=== PATIENT | male | born 1990 | race Caucasian/White ===

== ENCOUNTER 2020-04-09 12:34 | Emergency (ER) | payer OTHER ==
--- NOTE | 2020-04-09 12:41 | ED Physician Documentation ---
PD HPI LOWER EXT INJURY - Stated complaint Stated Complaint: RT FOOT PX - History obtained from History obtained from: Patient - History of Present Illness PD HPI LOW EXT INJURY LOCATION: Right, Foot, Toe (dorsal/medial aspect of great toe MTP area. Local redness and swelling that has not improved but has not expanded from the area. Very painful.) Type of injury: Other (he does exercise regularly. Also had tight fitting boots on the week prior. No particular impact/injury. No history of fevers, punctures/skin injury, nor prior gout.). No: Fall, Twist Timing - onset: How many weeks ago (1) Timing - duration: Weeks (1) Timing - details: Gradual onset, Still present (increased the past 1-2 days), Waxing and waning Worsened by: Moving, Palpating Associated symptoms: Swelling, Discolored (red). No: Weakness, Numbness Similar symptoms before: Has not had sx before Recently seen: Not recently seen Review of Systems Constitutional: denies: Fever, Chills, Myalgias Nose: denies: Rhinorrhea / runny nose, Congestion Throat: denies: Sore throat Respiratory: denies: Cough GI: denies: Nausea, Vomiting, Diarrhea Skin: denies: Lesions, Abrasion (s), Laceration (s) Neurologic: denies: Focal weakness, Numbness PD PAST MEDICAL HISTORY - Past Medical History Cardiovascular: None Respiratory: None Endocrine/Autoimmune: None GI: None : None HEENT: None Psych: None Musculoskeletal: None, Other (no history of gout) Derm: Other - Present Medications Home Medications: Ambulatory Orders Medication Instructions Recorded Confirmed Aspirin [Adult Low Dose Aspirin EC] 1 tab PO DAILY 01/20/18 04/09/20 Hydrocodone/Acetaminophen [[place] 1 each PO Q6H PRN #15 tablet 04/09/20 5-325 Tablet] Indomethacin 25 mg PO TID #20 capsule 04/09/20 dexAMETHasone [Decadron] 4 mg PO DAILY #5 tablet 04/09/20 - Allergies Allergies/Adverse Reactions: Allergies Allergy/AdvReac Type Severity Reaction Status Date / Time No Known Drug Allergies Allergy Verified 04/09/20 12:38 - Social History Does the pt smoke?: No Does the pt drink ETOH?: Yes ETOH Use: Other (very infrequently, every 1-2 weeks. ) Does the pt have substance abuse?: No PD ED PE NORMAL - Vitals Vital signs reviewed: Yes - General General: Alert and oriented X 3, No acute distress, Well developed/nourished - Derm Derm: Normal color, Warm and dry - Extremities Extremities: Other (right great toe MTP dorsomedially with redness, swelling, small effusion and marked tenderness very localized. No spread/extension to the more proximal foot nor tip of toe. ) - Neuro Neuro: Alert and oriented X 3, No motor deficit, No sensory deficit, Normal speech Results - Vitals Vitals: Vital Signs - 24 hr 04/09/20 12:39 Temperature 36.6 C Heart Rate 86 Respiratory 18 Rate Blood Pressure 134/88 H O2 Saturation 97 Oxygen O2 Source Room air PD MEDICAL DECISION MAKING - ED course Complexity details: considered differential (no skin lesions to act as nidus for infection. The location, tenderness, and look of it are typical gout. Could be irritation from tight boots or activity (tendonitis or irritation leading to gout). Small effusion of the toe MTP. Discussion with pt of trying to tap it versus empirically Rx for gout/tendonitis, since does not seem infectious, and he agrees on not tapping it. ), d/w patient Departure - Departure Disposition: Home, Self Care Clinical Impression: Pain of right great toe Acute gout Qualifiers: Gout site: toe Gout etiology: unspecified cause Laterality: right Qualified Code(s): M10.9 - Gout, unspecified Condition: Stable Record reviewed to determine appropriate education?: Yes Instructions: ED Arthritis Gout Follow-Up: ELROY DODGE [Primary Care Provider] - Prescriptions: dexAMETHasone [Decadron] 4 mg PO DAILY #5 tablet Hydrocodone/Acetaminophen [[place] 5-325 Tablet] 1 each PO Q6H PRN #15 tablet PRN Reason: Pain Indomethacin 25 mg PO TID #20 capsule Comments: This seems likely to be gout or a tendinitis around the toe. Treated with anti- inflammatory indomethacin 3 times a day with food for the next several days to week until improved. Concurrently treat with a steroid L anti-inflammatory Decadron for the next several days as well. Add Tylenol or hydrocodone as needed for worse pain. Crutches as needed for note of partial weightbearing until improved. I would anticipate improvement over the next 2 to 3 days and resolution within 3 to 5 days. Follow-up with your primary care if not better during that time. Recheck sooner if increasing symptoms or fever or redness extending beyond just the toe area. Discharge Date/Time: 04/09/20 14:19
[2020-04-09 12:42] VITALS: BP 134/88
[2020-04-09] MEDS ORDERED: DEXAMETHASONE 10 MG/ML VIAL PO STA (13:27)
[2020-04-09] MEDS ORDERED: HYDROcod/ACETAM 5/325 MG TABLET PO STA (13:27)
[2020-04-09] MEDS ORDERED: CHERRY SYRUP 10 ML UDC PO ONE (13:27)
[2020-04-09] MEDS ORDERED: NAPROXEN 250 MG TABLET PO STA (13:27)
== END 2020-04-09 14:19 | disposition home or self-care (01) ==
LOC: ED 12:34
DX: M10.9 Gout, unspecified (principal)
CPT/HCPCS: 99283; A9270

== ENCOUNTER 2020-08-28 18:00 | Inpatient (IN) | payer OTHER ==
[2020-08-28] MEDS ORDERED: diltiaZEM INJ 5 MG/ML VIAL IVP STA (18:13)
[2020-08-28 18:22] LABS: BASOPHILS % (AUTO) 0.4 %; EOSINOPHILS # (AUTO) 0.1 10^3/uL (0.0-0.7); EOSINOPHILS % (AUTO) 1.6 %; HGB - HEMOGLOBIN 16.5 g/dL (14.0-18.0); LYMPHOCYTES # (AUTO) 1.8 10^3/uL (1.5-3.5); LYMPHOCYTES % (AUTO) 23.8 %; MEAN CORPUSCULAR HEMOGLOBIN 30.1 pg (27.0-31.0); MEAN CORPUSCULAR HGB CONC 33.5 g/dL (32.0-36.0); MEAN CORPUSCULAR VOLUME 89.8 fL (80.0-94.0); MEAN PLATELET VOLUME 12.3 fL (7.4-11.4); MONOCYTES # (AUTO) 0.4 10^3/uL (0.0-1.0); MONOCYTES % (AUTO) 5.6 %; NEUTROPHILS # (AUTO) 5.2 10^3/uL (1.5-6.6); NEUTROPHILS % (AUTO) 68.3 %; PLT - PLATELET COUNT 195 10^3/uL (130-450); RED BLOOD COUNT 5.49 10^6/uL (4.70-6.10); RED CELL DISTRIBUTION WIDTH 13.2 % (12.0-15.0); WHITE BLOOD COUNT 7.6 x10^3/uL (4.8-10.8)
[2020-08-28] MEDS ORDERED: DILTIAZEM 125 MG in DEXTROSE 5% 100 ML IV STA (18:28)
--- NOTE | 2020-08-28 18:29 | ED Physician Documentation ---
History of Present Illness - Stated complaint Stated Complaint: SOA/CHEST TIGHTNESS - Chief complaint Chief Complaint: Cardiac - History obtained from History obtained from: Patient - History of Present Illness Timing: How many days ago (3-4) Pain level max: 0 Pain level now: 0 - Additonal information Additional information: 30-year-old male complains of chest tightness for the past 3 to 4 days, shortness of air as well. No recent illnesses. No fevers. No cough. No chills. Nothing makes it better or worse. No history of heart problems. He states that he had a sinus venous thrombosis many years ago, but his anticoagulation work-up was negative. He is only on aspirin daily. Does drink 3-4 alcoholic drinks per night. Denies any marijuana use. Does not smoke. Review of Systems Ten Systems: 10 systems reviewed and negative Constitutional: denies: Fever, Chills Ears: denies: Ear pain Nose: denies: Rhinorrhea / runny nose, Congestion Throat: denies: Sore throat Cardiac: reports: Chest pain / pressure, Palpitations Respiratory: denies: Cough GI: denies: Abdominal Pain, Nausea, Vomiting, Diarrhea : denies: Dysuria Skin: denies: Rash Musculoskeletal: denies: Neck pain, Back pain Neurologic: denies: Headache PD PAST MEDICAL HISTORY - Past Medical History Cardiovascular: None Respiratory: None Neuro: Other Endocrine/Autoimmune: None GI: None : None HEENT: None Psych: None Musculoskeletal: None, Other (no history of gout) Derm: Other - Past Surgical History Past Surgical History: No - Present Medications Home Medications: Ambulatory Orders Medication Instructions Recorded Confirmed Aspirin [Adult Low Dose Aspirin EC] 1 tab PO DAILY 01/20/18 04/09/20 Hydrocodone/Acetaminophen [[place] 1 each PO Q6H PRN #15 tablet 04/09/20 5-325 Tablet] Indomethacin 25 mg PO TID #20 capsule 04/09/20 dexAMETHasone [Decadron] 4 mg PO DAILY #5 tablet 04/09/20 - Allergies Allergies/Adverse Reactions: Allergies Allergy/AdvReac Type Severity Reaction Status Date / Time No Known Drug Allergies Allergy Verified 08/28/20 18:04 - Social History Does the pt smoke?: No Smoking Status: Never smoker Does the pt drink ETOH?: Yes Does the pt have substance abuse?: No - Immunizations Immunizations are current?: Yes - POLST Patient has POLST: No PD ED PE NORMAL - Vitals Vital signs reviewed: Yes - General General: Alert and oriented X 3, No acute distress, Well developed/nourished - HEENT HEENT: Moist mucous membranes - Neck Neck: Supple, no meningeal sign - Cardiac Cardiac: Other (Tachycardic) - Respiratory Respiratory: No respiratory distress, Clear bilaterally - Abdomen Abdomen: Soft, Non tender, Non distended - Derm Derm: Warm and dry - Extremities Extremities: No edema - Neuro Neuro: Alert and oriented X 3 - Psych Psych: Normal mood, Normal affect Results - Vitals Vitals: Vital Signs - 24 hr 08/28/20 08/28/20 08/28/20 18:04 18:23 18:28 Temperature 36.5 C 36.5 C 36.5 C Heart Rate 184 H 184 H 107 H Respiratory 20 20 20 Rate Blood Pressure 124/95 H 116/101 H 110/95 H O2 Saturation 98 98 96 08/28/20 08/28/20 08/28/20 18:30 19:27 19:33 Temperature 36.5 C Heart Rate 122 H 161 H 161 H Respiratory 20 Rate Blood Pressure 110/95 H 123/105 H 123/105 H O2 Saturation 98 08/28/20 08/28/20 19:45 19:52 Temperature Heart Rate 147 H 145 H Respiratory 20 16 Rate Blood Pressure 119/101 H 121/93 H O2 Saturation 92 92 Oxygen O2 Source Room air - EKG (time done) 1804 Rate: Rate (enter#) (184) Rhythm: Atrial fibrillation (RVR) Rollins: Normal QRS: Normal Ischemia: Normal ST segments - Labs Labs: Laboratory Tests 08/28/20 08/28/20 08/28/20 18:15 18:15 18:15 WBC 7.6 RBC 5.49 Hgb 16.5 Hct 49.3 MCV 89.8 MCH 30.1 MCHC 33.5 RDW 13.2 Plt Count 195 MPV 12.3 H Neut # (Auto) 5.2 Lymph # (Auto) 1.8 Deuel # (Auto) 0.4 Eos # (Auto) 0.1 Baso # (Auto) 0.0 Absolute Nucleated RBC 0.00 Nucleated RBC % 0.0 Sodium 140 Potassium 4.5 Chloride 106 Carbon Dioxide 23 Anion Gap 11.0 BUN 21 H Creatinine 1.6 H Estimated GFR (MDRD) 50 L Glucose 109 H Calcium 9.2 Total Bilirubin 1.2 H AST 34 ALT 58 Alkaline Phosphatase 52 Troponin I High Sens 21.9 H* B-Natriuretic Peptide Total Protein 6.6 L Albumin 4.2 Globulin 2.4 Albumin/Globulin Ratio 1.8 Lipase 36 TSH Urine Opiates Screen Ur Oxycodone Screen Urine Methadone Screen Ur Propoxyphene Screen Ur Barbiturates Screen Ur Tricyclics Screen Ur Phencyclidine Scrn Ur Amphetamine Screen U Methamphetamines Scrn U Benzodiazepines Scrn Urine Cocaine Screen U Cannabinoids Screen Ethyl Alcohol 08/28/20 08/28/20 08/28/20 18:15 18:15 18:28 WBC RBC Hgb Hct MCV MCH MCHC RDW Plt Count MPV Neut # (Auto) Lymph # (Auto) Deuel # (Auto) Eos # (Auto) Baso # (Auto) Absolute Nucleated RBC Nucleated RBC % Sodium Potassium Chloride Carbon Dioxide Anion Gap BUN Creatinine Estimated GFR (MDRD) Glucose Calcium Total Bilirubin AST ALT Alkaline Phosphatase Troponin I High Sens B-Natriuretic Peptide 752 H Total Protein Albumin Globulin Albumin/Globulin Ratio Lipase TSH 1.31 Urine Opiates Screen Ur Oxycodone Screen Urine Methadone Screen Ur Propoxyphene Screen Ur Barbiturates Screen Ur Tricyclics Screen Ur Phencyclidine Scrn Ur Amphetamine Screen U Methamphetamines Scrn U Benzodiazepines Scrn Urine Cocaine Screen U Cannabinoids Screen Ethyl Alcohol < 5.0 08/28/20 19:07 WBC RBC Hgb Hct MCV MCH MCHC RDW Plt Count MPV Neut # (Auto) Lymph # (Auto) Deuel # (Auto) Eos # (Auto) Baso # (Auto) Absolute Nucleated RBC Nucleated RBC % Sodium Potassium Chloride Carbon Dioxide Anion Gap BUN Creatinine Estimated GFR (MDRD) Glucose Calcium Total Bilirubin AST ALT Alkaline Phosphatase Troponin I High Sens B-Natriuretic Peptide Total Protein Albumin Globulin Albumin/Globulin Ratio Lipase TSH Urine Opiates Screen NEGATIVE Ur Oxycodone Screen NEGATIVE Urine Methadone Screen NEGATIVE Ur Propoxyphene Screen NEGATIVE Ur Barbiturates Screen NEGATIVE Ur Tricyclics Screen NEGATIVE Ur Phencyclidine Scrn NEGATIVE Ur Amphetamine Screen NEGATIVE U Methamphetamines Scrn NEGATIVE U Benzodiazepines Scrn NEGATIVE Urine Cocaine Screen NEGATIVE U Cannabinoids Screen NEGATIVE Ethyl Alcohol - Rads (name of study) CT angio chest Radiology: Prelim report reviewed, EMP read contemporaneously, See rad report PD MEDICAL DECISION MAKING - ED course Complexity details: reviewed results, re-evaluated patient, considered differential (No ST elevation ME, no aortic dissection, no PE, no tension pneumothorax, no aortic aneurysm), d/w patient, d/w decorator consultant ED course: Patient with new onset atrial fibrillation with rapid ventricular response. Placed on a diltiazem drip for rate control. Did respond transiently to IV diltiazem. No pulmonary embolus on CT scan. Does have small bilateral pleural effusions and mildly elevated BNP, likely from the uncontrolled rate for several days. Possible that this is alcohol induced? Discussed the case with Dr. Prieto, hospitalist who accepts. This document was made in part using voice recognition software. While efforts are made to proofread this document, sound alike and grammatical errors may occur. 1. No acute pulmonary embolus. 2. Small bilateral low-density pleural effusions. 3. Questionable bifid right renal collecting system with marked dilatation of the upper moiety. Differential considerations include simple renal cyst. Nonemergent renal ultrasound or CT KUB could be used to further characterize this finding. Departure - Departure Disposition: 66 [facility] DC/Xfer Clinical Impression: Atrial fibrillation with rapid ventricular response, New onset a-fib Condition: Stable Discharge Date/Time: 08/28/20 20:43
[2020-08-28 18:36] LABS: ALBUMIN 4.2 g/dL (3.2-5.5); ALBUMIN/GLOBULIN RATIO 1.8 (1.0-2.2); BILIRUBIN,TOTAL 1.2 mg/dL (0.2-1.0); CALCIUM 9.2 mg/dL (8.5-10.3); CREATININE 1.6 mg/dL (0.6-1.2); TOTAL PROTEIN 6.6 g/dL (6.7-8.2)
[2020-08-28] MEDS ORDERED: IOVERSOL 320 100 ML VIAL IVP ONE ×2 (18:40→19:04)
[2020-08-28] MEDS ORDERED: SODIUM CHLORIDE 0.9% 1,000 ML IV STA (18:47)
[2020-08-28 19:14] LABS: MUDS CUTOFF CONCENTRATIONS CUTOFF CONC BELOW:
--- NOTE | 2020-08-28 19:26 | CT Report ---
PROCEDURE: ANGIO CHEST W/WO INDICATIONS: chest tightness, afib, h/o sinus thrombosis CONTRAST: IV CONTRAST: Optiray 320 ml: 801 PO CONTRAST: *NO PO CONTRAST TECHNIQUE: After the administration of intravenous contrast, 2 mm thick sections acquired from the pulmonary api samira to the posterior costophrenic angles. 3-dimensional maximum intensity projection (MIP) coronal a nd sagittal reformats were then acquired through the thorax. For radiation dose reduction, the follow ing was used: automated exposure control, adjustment of mA and/or kV according to patient size. COMPARISON: FINDINGS: Image quality: Excellent. Pulmonary arteries: Pulmonary arteries are normal in size, and demonstrate no intraluminal filling d efects to suggest central pulmonary embolism. Lungs and pleura: Lungs are clear. There are small bilateral low-density pleural effusions. Central and peripheral airways are patent. Mediastinum: Heart size is mildly enlarged, without pericardial effusion. There are multiple shotty AP window lymph nodes, none of which meet the pathologic size criteria for adenopathy. Thoracic aorta is normal in caliber and enhancement. Esophagus is normal in caliber, without hiatal hernia. Bones and chest wall: No suspicious bony lesions. Ribs and thoracic spine appear intact throughout. The thyroid is normal. No axillary or supraclavicular adenopathy. Abdomen: There is a large low density cystic lesion at the upper pole of the right kidney. It is unc lear whether this represents a simple renal cyst or may represent a dilated bifid renal collecting sy stem. Visualized upper abdominal solid organs appear otherwise normal in the early arterial phase of enhanc ement. IMPRESSION: 1. No acute pulmonary embolus. 2. Small bilateral low-density pleural effusions. 3. Questionable bifid right renal collecting system with marked dilatation of the upper moiety. Diffe rential considerations include simple renal cyst. Nonemergent renal ultrasound or CT KUB could be use d to further characterize this finding. Reviewed by: Xin Levi MD on 08/28/2020 7:25 PM PDT Approved by: Xin Levi MD on 08/28/2020 7:25 PM PDT Station ID: [id number]
[2020-08-28 19:31] LABS: AMPHETAMINE SCREEN,URINE NEGATIVE (NEGATIVE); BENZODIAZEPINES SCREEN, URINE NEGATIVE (NEGATIVE); COCAINE SCREEN URINE NEGATIVE (NEGATIVE); METHADONE SCREEN, URINE NEGATIVE (NEGATIVE); METHAMPHETAMINES SCREEN, URINE NEGATIVE (NEGATIVE); OPIATE SCREEN, URINE NEGATIVE (NEGATIVE); OXYCODONE SCREEN, URINE NEGATIVE (NEGATIVE); PROPOXYPHENE SCREEN, URINE NEGATIVE (NEGATIVE); TRICYCLIC ANTIDEPRESSANT,URINE NEGATIVE (NEGATIVE)
[2020-08-28] MEDS ORDERED: ACETAMINOPHEN 325 MG TABLET PO PRN (19:59)
[2020-08-28] MEDS ORDERED: SODIUM CHLORIDE FLUSH 0.9% 10 ML SYRINGE IVP PRN (19:59)
[2020-08-28] MEDS ORDERED: LORazepam 2 MG/ML VIAL IVP STA ×2 (20:00→22:03)
--- NOTE | 2020-08-28 20:06 | HISTORY & PHYSICAL EXAMINATION ---
Chief Complaint - Chief Complaint Chief Complaint: Dyspnea, irregularly irregular heart rate, tachycardia History of Present Illness - Admitted From Admitted From:: [facility] ED - History Obtained From Records Reviewed: Yes History obtained from: Patient - History of Present Illness HPI Comment/Other: Patient is a 30-year-old male who presented to the ED with complaint of dyspnea and chest tightness. This has been going on for the past 4 to 5 days but has gradually been getting worse. About 5 days ago he noticed he would get winded/dyspneic walking half a mile. Today he is dyspneic getting from the bedroom to the bathroom. He denied chest pain. He denied abdominal pain, fever or chills. He does not have any lower extremity edema or wheezing. He reports a dry cough and he has also been nauseous without any vomiting. In the ED he was noted to be tachycardic with a heart rate as high as 184. He was given diltiazem 20 mg IV in the ED with slight improvement in his heart rate. However it continues to fluctuate between 120-150. Consequently he was started on diltiazem drip and presented for admission. Initial troponin is 21.9. BNP 752. History - Past Medical History Cardiovascular: reports: None Respiratory: reports: None Neuro: reports: Other Endocrine/Autoimmune: reports: None GI: reports: None : reports: None HEENT: reports: None Psych: reports: None Musculoskeletal: reports: None, Other (no history of gout) Derm: reports: Other MRSA Hx?: No Other Past Medical History: History of sinus venous thrombosis for which the patient was on Coumadin for 2 years then has been on a baby aspirin daily for 3 years now. Patient underwent a hypercoagulable work-up which was unremarkable. - Past Surgical History Other past surgical history: Patient denied any surgical history - Family & Social History Family History Comment/Other: No recent extensive history of cancer unspecified and his grandparents. Living arrangement: At home Living Situation: With spouse/s.o. Social History Notes: The patient used to drink about 12 ounces of vodka daily but cut back to about 6 ounces within the past couple weeks. He last had a dr ink yesterday. He does not use tobacco products or recreational substances. - POLST Patient has POLST: No POLST Status: Full Code Meds/Allgy - Home Medications Home Medications: Ambulatory Orders Medication Instructions Recorded Confirmed Aspirin [Adult Low Dose Aspirin EC] 1 tab PO DAILY 01/20/18 04/09/20 Hydrocodone/Acetaminophen [[place] 1 each PO Q6H PRN #15 tablet 04/09/20 5-325 Tablet] Indomethacin 25 mg PO TID #20 capsule 04/09/20 dexAMETHasone [Decadron] 4 mg PO DAILY #5 tablet 04/09/20 - Allergies Allergies/Adverse Reactions: Allergies Allergy/AdvReac Type Severity Reaction Status Date / Time No Known Drug Allergies Allergy Verified 08/28/20 18:04 Review of Systems - Constitutional Constitutional: denies: Fatigue, Fever, Chills - Eyes Eyes: denies: Pain - Ears, Nose & Throat Ears, Nose & Throat: denies: Ear pain - Cardiovascular Cariovascular: reports: Irregular heart rate. denies: Chest pain, Edema, Lightheadedness, Syncope, Exertional dyspnea - Respiratory Respiratory: denies: Cough, Sputum production, Wheezing, SOB at rest, SOB with exertion - Gastrointestinal Gastrointestinal: denies: Abdominal pain, Abdominal distention, Constipation, Diarrhea, Nausea, Vomiting, Reflux/heartburn - Genitourinary Genitourinary: denies: Dysuria, Frequency, Urgency, Hematuria - Musculoskeletal Musculoskeletal: denies: Muscle pain, Back pain, Muscle aches - Integumentary Integumentary: denies: Rash, Pruritis, Lesions - Neurological Neurological: denies: General weakness, Focal weakness, Headache, Dizziness - Psychiatric Psychiatric: denies: Depression, Anxiety - Endocrine Endocrine: denies: Polyuria, Polydypsia - Hematologic/Lymphatic Hematologic/Lymphatic: denies: Anemia, Bruising, Petechiae Prior Level of Functionality: Patient is independent of activities of daily living Exam - Vital Signs Vital Signs: Vital Signs x48h Temp Pulse Resp BP Pulse Ox 08/28/20 19:33 161 H 123/105 H 08/28/20 19:27 161 H 123/105 H 08/28/20 18:30 36.5 C 122 H 20 110/95 H 98 08/28/20 18:28 36.5 C 107 H 20 110/95 H 96 08/28/20 18:23 36.5 C 184 H 20 116/101 H 98 08/28/20 18:04 36.5 C 184 H 20 124/95 H 98 - Physical Exam General Appearance: positive: No acute distress, Alert Eyes Bilateral: positive: PERRL, EOMI ENT: positive: No signs of dehydration Neck: positive: No JVD, Trachea midline Respiratory: positive: Chest non-tender, No respiratory distress, Breath sounds nml. negative: Wheezes, Rales, Rhonchi Cardiovascular: positive: Irregularly irregular, Tachycardia Abdomen: positive: Non-tender, No organomegaly, Nml bowel sounds, No distention. negative: Guarding, Rebound Back: positive: Nml inspection Skin: positive: Color nml, No rash, Warm, Dry Extremities: positive: Non-tender, Full ROM, Nml appearance, No pedal edema Neurologic/Psychiatric: positive: Oriented x3, Mood/affect nml Conclusion/Plan - Problem List (1) Atrial fibrillation with rapid ventricular response Conclusion/Plan: New onset. Etiology undetermined. CTA chest was negative for PE. TSH was normal. Tox screen was negative. Patient started on diltiazem drip. Will continue. BMP was 752. 2D echo ordered for the morning. Initial troponin was 21. We will trend troponin x2 more (2) Alcohol abuse Conclusion/Plan: Patient reports drinking about 12 ounces of vodka daily. He recently cut down to about 6 ounces. He last drank yesterday. He has experienced times of irritability and restlessness from not having drank in a while. It has never wanted his presentation to the hospital. [facility] protocol ordered. - Lab Results Fish Bones: 08/28/20 18:15 08/28/20 18:15 Core Measures - Anticipated LOS I expect patient to be DC'd or transferred within 96 hours.: Yes - DVT/VTE - Prophylaxis VTE/DVT Device ordered at admit?: Yes VTE/DVT Prophylaxis med ordered at admit?: Yes
[2020-08-28] MEDS ORDERED: diltiaZEM INJ 125 MG in DEXTROSE 5% 100 ML IV SCH (21:00)
[2020-08-28] MEDS ORDERED: METOPROLOL 5 MG/5 ML VIAL IVP STA (21:23)
[2020-08-28] MEDS ORDERED: METOPROLOL 5 MG/5 ML VIAL IVP PRN (21:26)
[2020-08-28] MEDS ORDERED: LORazepam 2 MG/ML VIAL IVP PRN (21:28)
[2020-08-28] MEDS ORDERED: METOPROLOL 5 MG/5 ML VIAL IVP ONE (21:35)
[2020-08-28] MEDS ORDERED: SODIUM CHLORIDE 0.9% 500 ML IV ONE (22:02)
[2020-08-28] MEDS ORDERED: LORazepam 2 MG/ML VIAL ONE (22:11)
[2020-08-28 22:23] LABS: BILIRUBIN,TOTAL 1.1 mg/dL (0.2-1.0); CALCIUM 8.8 mg/dL (8.5-10.3); CREATININE 1.8 mg/dL (0.6-1.2)
[2020-08-28] MEDS: chlordiazePOXIDE 25 MG CAPSULE PO SCH (22:50)
[2020-08-28] MEDS ORDERED: SODIUM CHLORIDE 0.9% 1,000 ML IV SCH (23:00)
[2020-08-28] MEDS ORDERED: SODIUM CHLORIDE 0.9% 1,000 ML IV ONE (23:45)
[2020-08-29] MEDS ORDERED: diltiaZEM 30 MG TABLET PO SCH
[2020-08-29] MEDS: SODIUM CHLORIDE FLUSH 0.9% 10 ML SYRINGE IVP SCH ×2 (00:23→09:25)
[2020-08-29] MEDS ORDERED: THIAMINE 100 MG TABLET PO SCH (09:00)
[2020-08-29] MEDS ORDERED: ENOXAPARIN 40 MG/0.4 ML SYRINGE SUBQ SCH (09:00)
[2020-08-29] MEDS ORDERED: MULTIVITAMIN TABLET PO SCH (09:00)
[2020-08-29] MEDS ORDERED: PRENATAL VITAMIN TABLET PO SCH (09:00)
[2020-08-29] MEDS ORDERED: METOPROLOL TARTRATE 50 MG TABLET PO SCH (09:00)
[2020-08-29] MEDS ORDERED: FUROSEMIDE 40 MG/4 ML VIAL IVP STA (09:21)
[2020-08-29 09:25] VITALS: BP 113/75
[2020-08-29] MEDS ORDERED: METOPROLOL TARTRATE 50 MG TABLET ONE (09:26)
[2020-08-29] MEDS ORDERED: THIAMINE 100 MG TABLET PO ONE (09:27)
[2020-08-29] MEDS ORDERED: PRENATAL VITAMIN TABLET PO ONE (09:27)
[2020-08-29] MEDS ORDERED: ENOXAPARIN 40 MG/0.4 ML SYRINGE SUBQ ONE (09:28)
[2020-08-29] MEDS: chlordiazePOXIDE 25 MG CAPSULE PO SCH (10:30)
[2020-08-29] MEDS ORDERED: FUROSEMIDE 40 MG/4 ML VIAL ONE (10:42)
--- NOTE | 2020-08-29 11:23 | DISCHARGE SUMMARY ---
"Discharge Summary Admit Date: 08/28/20 Discharge Date: 08/29/20 Discharging Provider: Frederick Herrera Code Status: Attempt Resuscitation Condition at Discharge: Stable Discharge Disposition: 02 Transfer Acute Care Hosp Discharge Facility Name: [facility] - DIAGNOSES Admission Diagnoses: Atrial fibrillation with RVR Alcohol abuse Discharge Diagnoses with Status of Each Condition: Acute CHF with reduced EF of 20% Atrial fibrillation with RVR Acute kidney injury Alcohol abuse History of venous sinus thrombosis - HPI History of Present Illness: H&P per Dr. Prieto: Patient is a 30-year-old male who presented to the ED with complaint of dyspnea and chest tightness. This has been going on for the past 4 to 5 days but has gradually been getting worse. About 5 days ago he noticed he would get winded/dyspneic walking half a mile. Today he is dyspneic getting from the bedroom to the bathroom. He denied chest pain. He denied abdominal pain, fever or chills. He does not have any lower extremity edema or wheezing. He reports a dry cough and he has also been nauseous without any vomiting. In the ED he was noted to be tachycardic with a heart rate as high as 184. He was given diltiazem 20 mg IV in the ED with slight improvement in his heart rate. However it continues to fluctuate between 120-150. Consequently he was started on diltiazem drip and presented for admission. Initial troponin is 21.9. BNP 752. - CONSULTS | PROCEDURES Procedures: Preliminary echocardiogram report revealed an ejection fraction of 20%. Moderate MR and TR. Moderately elevated PA pressures. - HOSPITAL COURSE Hospital Course: He was admitted to the ICU for atrial fibrillation with RVR and started on a diltiazem drip. This improved his heart rate to the 120's from the 170's. He was then started on oral Metoprlol 50mg PO twice daily. His blood pressure did transiently drop overnight wile on diltiazem to the 60's systolic but he was asymptomatic. His blood pressure since the discontinuation of diltiazem and initiation of Metoprolol has range from the high 90's to low 100's. He does have a narrow pulse pressure with a diastolic in the 80's. His initial troponin was mildly elevated at 21 with normal being less than 20. His BNP was elevated in the 700's. CTA of the chest was negative for PE but did reveal small bilateral pleural effusions. No obvious central pulmonary vascular congestion was noted. An echocardiogram was obtained which revealed an ejection of approximately 20% with moderate MR and TR as well as elevated PA pressures. His TSH is within normal limits. He does drink alcohol on daily basis averaging 3 drinks a night for the past 10 days. Denies any recent viral illness. Given his echocardiogram findings, it was felt he would need more urgent cardiology evaluation and so transfer was sought. He was graciously accepted at [facility] by Dr. Bynum and Dr. Lo of internal medicine. The patient will be transferred via ALS in a stable condition. Prior to discharge, he is afebrile. Heart rate is ranging from 115-125 and in atrial fibrillation. He did receive 50mg of Metoprolol this morning. Blood pressure is 99/78 mm Hg. His RR is 24. He is saturating 97% on room air. - ALLERGIES Allergies/Adverse Reactions: Allergies Allergy/AdvReac Type Severity Reaction Status Date / Time No Known Drug Allergies Allergy Verified 08/28/20 18:04 - MEDICATIONS Home Medications: Ambulatory Orders Medication Instructions Recorded Confirmed Aspirin [Adult Low Dose Aspirin EC] 1 tab PO DAILY 01/20/18 04/09/20 Hydrocodone/Acetaminophen [[place] 1 each PO Q6H PRN #15 tablet 04/09/20 5-325 Tablet] Indomethacin 25 mg PO TID #20 capsule 04/09/20 dexAMETHasone [Decadron] 4 mg PO DAILY #5 tablet 04/09/20 Home Medications Other | Comments: Active Medications Acetaminophen (Tylenol) 650 mg PO Q4HR PRN PRN Reason: Pain 1 to 4 Chlordiazepoxide HCl (Librium) 25 mg PO Q8HR [facility] Last Admin: 08/29/20 10:30 Dose: Not Given Documented by: Enoxaparin Sodium (Lovenox) 40 mg SUBQ DAILY [facility] Last Admin: 08/29/20 09:24 Dose: 40 mg Documented by: Lorazepam (Ativan Inj (Vial)) 1 mg IVP Q30M PRN; Protocol PRN Reason: CIWA >8 Metoprolol Tartrate (Lopressor Inj) 5 mg IVP Q6H PRN PRN Reason: Tachycardia Metoprolol Tartrate (Lopressor) 50 mg PO BID [facility] Last Admin: 10/12/20 09:24 Dose: 50 mg Documented by: Multivitamins (Theragran) 1 tab PO DAILYWM [facility] Last Admin: 08/29/20 10:31 Dose: Not Given Documented by: Multivit/Folic Acid/Iron (Trinatal Rx 1) 1 tab PO DAILY [facility] Last Admin: 08/29/20 09:24 Dose: 1 tab Documented by: Sodium Chloride (Normal Saline Flush 0.9%) 10 ml IVP 0100,0900,1700 [facility] Last Admin: 08/29/20 09:25 Dose: 10 ml Documented by: Sodium Chloride (Normal Saline Flush 0.9%) 10 ml IVP PRN PRN PRN Reason: NEEDED PER PROVIDER ORDERS Last Admin: 08/28/20 22:37 Dose: 10 ml Documented by: Thiamine HCl (Vitamin B-1) 100 mg PO DAILY [facility] Last Admin: 08/29/20 09:24 Dose: 100 mg Documented by: Aspirin [Adult Low Dose Aspirin EC] 1 tab PO DAILY 01/20/18 - PHYSICAL EXAM AT DISCHARGE General Appearance: positive: No acute distress, Alert Eyes Bilateral: positive: Normal inspection, Conjunctivae nml ENT: positive: ENT inspection nml Neck: positive: Nml inspection Respiratory: positive: No respiratory distress, Other (Diminished in bases otherwise clear throughout.). negative: Wheezes, Rales Cardiovascular: positive: Irregularly irregular, Tachycardia. negative: Bradycardia, Systolic murmur Abdomen: positive: Non-tender, No distention. negative: Tenderness, Guarding, Rebound Skin: positive: Warm, Dry Extremities: positive: Full ROM, Pedal edema (Trace edema.) Neurologic/Psychiatric: positive: Oriented x3, Motor nml - LABS Result Diagrams: 08/28/20 18:15 08/28/20 22:06 Other Lab Results: Laboratory Tests 08/28/20 08/28/20 08/28/20 18:15 18:15 18:15 WBC 7.6 RBC 5.49 Hgb 16.5 Hct 49.3 MCV 89.8 MCH 30.1 MCHC 33.5 RDW 13.2 Plt Count 195 MPV 12.3 H Neut # (Auto) 5.2 Lymph # (Auto) 1.8 [place] # (Auto) 0.4 Eos # (Auto) 0.1 Baso # (Auto) 0.0 Absolute Nucleated RBC 0.00 Nucleated RBC % 0.0 Sodium 140 Potassium 4.5 Chloride 106 Carbon Dioxide 23 Anion Gap 11.0 BUN 21 H Creatinine 1.6 H Estimated GFR (MDRD) 50 L Glucose 109 H Calcium 9.2 Total Bilirubin 1.2 H AST 34 ALT 58 Alkaline Phosphatase 52 Troponin I High Sens 21.9 H* B-Natriuretic Peptide Total Protein 6.6 L Albumin 4.2 Globulin 2.4 Albumin/Globulin Ratio 1.8 Lipase 36 TSH Nasal Screen MRSA (PCR) Urine Opiates Screen Ur Oxycodone Screen Urine Methadone Screen Ur Propoxyphene Screen Ur Barbiturates Screen Ur Tricyclics Screen Ur Phencyclidine Scrn Ur Amphetamine Screen U Methamphetamines Scrn U Benzodiazepines Scrn Urine Cocaine Screen U Cannabinoids Screen Ethyl Alcohol 08/28/20 08/28/20 08/28/20 18:15 18:15 18:28 WBC RBC Hgb Hct MCV MCH MCHC RDW Plt Count MPV Neut # (Auto) Lymph # (Auto) [place] # (Auto) Eos # (Auto) Baso # (Auto) Absolute Nucleated RBC Nucleated RBC % Sodium Potassium Chloride Carbon Dioxide Anion Gap BUN Creatinine Estimated GFR (MDRD) Glucose Calcium Total Bilirubin AST ALT Alkaline Phosphatase Troponin I High Sens B-Natriuretic Peptide 752 H Total Protein Albumin Globulin Albumin/Globulin Ratio Lipase TSH 1.31 Nasal Screen MRSA (PCR) Urine Opiates Screen Ur Oxycodone Screen Urine Methadone Screen Ur Propoxyphene Screen Ur Barbiturates Screen Ur Tricyclics Screen Ur Phencyclidine Scrn Ur Amphetamine Screen U Methamphetamines Scrn U Benzodiazepines Scrn Urine Cocaine Screen U Cannabinoids Screen Ethyl Alcohol < 5.0 08/28/20 08/28/20 08/28/20 19:07 20:45 22:06 WBC RBC Hgb Hct MCV MCH MCHC RDW Plt Count MPV Neut # (Auto) Lymph # (Auto) [place] # (Auto) Eos # (Auto) Baso # (Auto) Absolute Nucleated RBC Nucleated RBC % Sodium 139 Potassium 3.9 Chloride 106 Carbon Dioxide 22 Anion Gap 11.0 BUN 20 Creatinine 1.8 H Estimated GFR (MDRD) 44 L Glucose 131 H Calcium 8.8 Total Bilirubin 1.1 H AST 30 ALT 52 Alkaline Phosphatase 45 Troponin I High Sens B-Natriuretic Peptide Total Protein 6.0 L Albumin 4.0 Globulin 2.0 L Albumin/Globulin Ratio 2.0 Lipase TSH Nasal Screen MRSA (PCR) NEGATIVE Urine Opiates Screen NEGATIVE Ur Oxycodone Screen NEGATIVE Urine Methadone Screen NEGATIVE Ur Propoxyphene Screen NEGATIVE Ur Barbiturates Screen NEGATIVE Ur Tricyclics Screen NEGATIVE Ur Phencyclidine Scrn NEGATIVE Ur Amphetamine Screen NEGATIVE U Methamphetamines Scrn NEGATIVE U Benzodiazepines Scrn NEGATIVE Urine Cocaine Screen NEGATIVE U Cannabinoids Screen NEGATIVE Ethyl Alcohol - DIAGNOSTIC IMAGING Diagnostic Imaging Results: Final report reviewed"
[2020-08-29 16:33] LABS: CALCIUM 8.3 mg/dL (8.5-10.3); CREATININE 1.6 mg/dL (0.6-1.2)
[2020-08-29 16:49] LABS: BASOPHILS % (AUTO) 0.2 %; EOSINOPHILS % (AUTO) 0.1 %; HGB - HEMOGLOBIN 14.7 g/dL (14.0-18.0); LYMPHOCYTES # (AUTO) 0.7 10^3/uL (1.5-3.5); LYMPHOCYTES % (AUTO) 8.6 %; MEAN CORPUSCULAR HEMOGLOBIN 30.2 pg (27.0-31.0); MEAN CORPUSCULAR HGB CONC 33.1 g/dL (32.0-36.0); MEAN CORPUSCULAR VOLUME 91.2 fL (80.0-94.0); MEAN PLATELET VOLUME 12.7 fL (7.4-11.4); MONOCYTES # (AUTO) 0.3 10^3/uL (0.0-1.0); MONOCYTES % (AUTO) 3.3 %; NEUTROPHILS # (AUTO) 7.5 10^3/uL (1.5-6.6); NEUTROPHILS % (AUTO) 87.3 %; PLT - PLATELET COUNT 158 10^3/uL (130-450); RED BLOOD COUNT 4.87 10^6/uL (4.70-6.10); RED CELL DISTRIBUTION WIDTH 13.2 % (12.0-15.0); WHITE BLOOD COUNT 8.6 x10^3/uL (4.8-10.8)
== END 2020-08-29 13:40 | disposition short-term general hospital (02) | DRG 308 ==
LOC: ED 18:00 → ICU 19:59
PROVIDERS: ADMIT Internal Medicine; ATTEND Internal Medicine
DX: I48.91 Unspecified atrial fibrillation (principal); I50.21 Acute systolic (congestive) heart failure; N17.9 Acute kidney failure, unspecified; J90 Pleural effusion, not elsewhere classified; Z86.718 Personal history of other venous thrombosis and embolism; F10.10 Alcohol abuse, uncomplicated; Z79.82 Long term (current) use of aspirin; R77.8 Other specified abnormalities of plasma proteins; I08.1 Rheumatic disorders of both mitral and tricuspid valves
CPT/HCPCS: 36415; 71275; 80048; 80053; 80306; 80320; 83690; 83880; 84443; 84484; 85025; 87150; 93005; 93306; A9270; J1650; J2060; Q9967; 96374; 99284

== ENCOUNTER 2020-09-05 14:32 | Outpatient (CLI) | payer OTHER | END 2020-09-05 14:33 | disposition critical access hospital (66) | LOC: EMS 14:32 | PROVIDERS: ATTEND Surgery | DX: R07.9 Chest pain, unspecified (principal) | CPT/HCPCS: A0425; A0427 ==

== ENCOUNTER 2020-09-05 14:57 | Emergency (ER) | payer OTHER ==
--- NOTE | 2020-09-05 15:20 | ED Physician Documentation ---
History of Present Illness - Stated complaint Stated Complaint: CHEST PAIN - Chief complaint Chief Complaint: Cardiac - History obtained from History obtained from: Patient, EMS - History of Present Illness Timing: Today Pain level max: 0 Pain level now: 0 - Additonal information Additional information: Patient is a 30-year-old male who presents to the emergency department after being recently admitted here and then transferred to [facility]. He was admitted for atrial fibrillation with rapid ventricular response. Found to have heart failure with an ejection fraction of 20. He was anticoagulated and placed on a diltiazem drip. Sent to [facility]. At [facility] he was placed on digoxin, apixaban. Today he developed central chest pain, nonradiating. Lasted for approximately 30 minutes. States he felt warm and flushed at that time. States he had pain in both his arms as well. Nothing made it better or worse. Resolved with EMS after nitroglycerin. He states he was feeling better prior to that however. Review of Systems Ten Systems: 10 systems reviewed and negative Constitutional: denies: Fever, Chills Eyes: denies: Decreased vision Ears: denies: Ear pain Nose: denies: Rhinorrhea / runny nose, Congestion Throat: denies: Sore throat Cardiac: denies: Palpitations Respiratory: denies: Dyspnea, Cough, Wheezing GI: denies: Abdominal Pain, Nausea, Vomiting, Diarrhea : denies: Dysuria Skin: denies: Rash Musculoskeletal: denies: Neck pain, Back pain Neurologic: denies: Headache PD PAST MEDICAL HISTORY - Past Medical History Cardiovascular: None Respiratory: None Neuro: Other Endocrine/Autoimmune: None GI: None : None HEENT: None Psych: None Musculoskeletal: None, Other (no history of gout) Derm: Other - Past Surgical History Past Surgical History: No - Present Medications Home Medications: Ambulatory Orders Medication Instructions Recorded Confirmed Aspirin [Adult Low Dose Aspirin EC] 1 tab PO DAILY 01/20/04/09/20 Hydrocodone/Acetaminophen [[place] 1 each PO Q6H PRN #15 tablet 04/09/20 5-325 Tablet] Indomethacin 25 mg PO TID #20 capsule 04/09/20 dexAMETHasone [Decadron] 4 mg PO DAILY #5 tablet 04/09/20 - Allergies Allergies/Adverse Reactions: Allergies Allergy/AdvReac Type Severity Reaction Status Date / Time No Known Drug Allergies Allergy Verified 09/05/20 15:05 - Social History Does the pt smoke?: No Smoking Status: Never smoker Does the pt drink ETOH?: Yes Does the pt have substance abuse?: No - Immunizations Immunizations are current?: Yes - POLST Patient has POLST: No POLST Status: Full Code PD ED PE NORMAL - Vitals Vital signs reviewed: Yes - General General: Alert and oriented X 3, No acute distress - HEENT HEENT: Moist mucous membranes - Neck Neck: Supple, no meningeal sign - Cardiac Cardiac: Other (irregular) - Respiratory Respiratory: No respiratory distress, Clear bilaterally - Abdomen Abdomen: Soft, Non tender, Non distended - Derm Derm: Warm and dry - Extremities Extremities: No edema, No calf tenderness / cord - Neuro Neuro: Alert and oriented X 3 - Psych Psych: Normal mood, Normal affect Results - Vitals Vitals: Vital Signs - 24 hr 09/05/20 09/05/20 09/05/20 15:05 15:30 16:00 Temperature 36.6 C Heart Rate 82 106 H 109 H Respiratory 16 20 24 Rate Blood Pressure 121/87 H 106/93 H 121/98 H O2 Saturation 97 95 98 09/05/20 09/05/20 09/05/20 16:30 17:10 17:43 Temperature 37.1 C Heart Rate 99 95 95 Respiratory 24 24 18 Rate Blood Pressure 118/96 H 113/97 H 142/92 H O2 Saturation 97 97 100 09/05/20 09/05/20 09/05/20 18:00 18:30 19:08 Temperature Heart Rate 109 H 98 96 Respiratory 13 13 24 Rate Blood Pressure 125/90 H 121/95 H 130/108 H O2 Saturation 99 97 98 09/05/20 09/05/20 19:30 20:02 Temperature 36.6 C Heart Rate 108 H 107 H Respiratory 22 21 Rate Blood Pressure 138/110 H 138/110 H O2 Saturation 98 98 Oxygen O2 Source Room air - EKG (time done) 1501 Rate: Rate (enter#) (92) Rhythm: Atrial fibrillation [place]: Normal Intervals: Normal NH QRS: Normal Ischemia: Non specific changes - Labs Labs: Laboratory Tests 09/05/20 09/05/20 09/05/20 15:19 15:19 15:19 WBC 7.1 RBC 4.89 Hgb 14.3 Hct 44.6 MCV 91.2 MCH 29.2 MCHC 32.1 RDW 13.7 Plt Count 174 MPV 12.2 H Neut # (Auto) 5.5 Lymph # (Auto) 0.9 L [place] # (Auto) 0.4 Eos # (Auto) 0.2 Baso # (Auto) 0.0 Absolute Nucleated RBC 0.00 Nucleated RBC % 0.0 Sodium 144 Potassium 4.6 Chloride 108 Carbon Dioxide 27 Anion Gap 9.0 BUN 19 Creatinine 1.6 H Estimated GFR (MDRD) 50 L Glucose 116 H Calcium 8.8 Total Bilirubin 0.9 AST 36 ALT 68 H Alkaline Phosphatase 35 L Troponin I High Sens 203.0 H* B-Natriuretic Peptide Total Protein 5.6 L Albumin 3.8 Globulin 1.8 L Albumin/Globulin Ratio 2.1 Lipase 52 H Last Dose Date Not Reportable Last Dose Time Not Reportable Digoxin 0.9 Urine Opiates Screen Ur Oxycodone Screen Urine Methadone Screen Ur Propoxyphene Screen Ur Barbiturates Screen Ur Tricyclics Screen Ur Phencyclidine Scrn Ur Amphetamine Screen U Methamphetamines Scrn U Benzodiazepines Scrn Urine Cocaine Screen U Cannabinoids Screen Ethyl Alcohol < 5.0 09/05/20 09/05/20 09/05/20 15:19 16:52 17:06 WBC RBC Hgb Hct MCV MCH MCHC RDW Plt Count MPV Neut # (Auto) Lymph # (Auto) [place] # (Auto) Eos # (Auto) Baso # (Auto) Absolute Nucleated RBC Nucleated RBC % Sodium Potassium Chloride Carbon Dioxide Anion Gap BUN Creatinine Estimated GFR (MDRD) Glucose Calcium Total Bilirubin AST ALT Alkaline Phosphatase Troponin I High Sens 868.5 H* B-Natriuretic Peptide 1518 H Total Protein Albumin Globulin Albumin/Globulin Ratio Lipase Last Dose Date Last Dose Time Digoxin Urine Opiates Screen NEGATIVE Ur Oxycodone Screen NEGATIVE Urine Methadone Screen NEGATIVE Ur Propoxyphene Screen NEGATIVE Ur Barbiturates Screen NEGATIVE Ur Tricyclics Screen NEGATIVE Ur Phencyclidine Scrn NEGATIVE Ur Amphetamine Screen NEGATIVE U Methamphetamines Scrn NEGATIVE U Benzodiazepines Scrn POSITIVE H Urine Cocaine Screen NEGATIVE U Cannabinoids Screen NEGATIVE Ethyl Alcohol - Rads (name of study) cxr Radiology: Prelim report reviewed, EMP read contemporaneously, See rad report (Mild cardiomegaly, mild generalized pulmonary edema. Suspect cardiogenic origin. ) PD MEDICAL DECISION MAKING - ED course Complexity details: reviewed old records, reviewed results, re-evaluated patient, considered differential, d/w patient, d/w alliances consultant ED course: Discussed the case with [facility], given rising trop, will need transfer. Patient is already beta blocked and on anticoagulation, so heparin drip held. Dr. Hurst at [facility]. There are no ICU beds available at [facility], they recommend transfer to a facility with cardiac ICU beds if needed. Discussed the case with Dr. Bill, cardiology at [facility] who graciously accepts in transfer. Discussed the case with Dr. Gonzales, hospitalist at [facility] who also graciously accepts in transfer. Dr. Bill did request a heparin drip, this was started. Patient remains asymptomatic in the emergency department. No further chest pain. COBRA forms completed. This document was made in part using voice recognition software. While efforts are made to proofread this document, sound alike and grammatical errors may occur. Discharge records from [facility]. The patient did have a transesophageal echocardiogram. New onset heart failure, likely thought to be arrhythmogenic. Had a normal left ventricular cavity size, but severely reduced systolic function, less than 20%. Severe global hypokinesis. Normal right ventricular cavity size. Moderate protruding mobile thrombus was visualized in the LA a ppendage. Prominent Chiari network noted in the right atrium. Mild mitral and tricuspid regurg. He was rate controlled and started on apixaban and metoprolol. Patient was also started on digoxin. Departure - Departure Disposition: 02 Transfer Acute Care Hosp Clinical Impression: NSTEMI (non-ST elevated myocardial infarction) Cardiomyopathy Qualifiers: Cardiomyopathy type: unspecified Qualified Code(s): I42.9 - Cardiomyopathy, unspecified Condition: Stable Discharge Date/Time: 09/05/20 20:25
--- NOTE | 2020-09-05 15:24 | XRAY Report ---
PROCEDURE: Chest 1 View X-Ray INDICATIONS: Chest Pain TECHNIQUE: One view of the chest was acquired. COMPARISON: CT 08/28/2020 FINDINGS: Surgical changes and devices: None. Lungs and pleura: No pleural effusions or pneumothorax. Lungs are edematous. Mediastinum: Mediastinal contours appear normal. Heart size is mildly enlarged. Bones and chest wall: No suspicious bony lesions. Overlying soft tissues appear unremarkable. IMPRESSION: Mild cardiomegaly, mild generalized pulmonary edema. Suspect cardiogenic origin. Reviewed by: Osiel Moreno MD on 09/05/2020 3:23 PM PDT Approved by: Osiel Moreno MD on 09/05/2020 3:23 PM PDT Station ID: [id number]
[2020-09-05 15:31] LABS: BASOPHILS % (AUTO) 0.4 %; EOSINOPHILS # (AUTO) 0.2 10^3/uL (0.0-0.7); EOSINOPHILS % (AUTO) 2.5 %; HGB - HEMOGLOBIN 14.3 g/dL (14.0-18.0); LYMPHOCYTES # (AUTO) 0.9 10^3/uL (1.5-3.5); LYMPHOCYTES % (AUTO) 13.1 %; MEAN CORPUSCULAR HEMOGLOBIN 29.2 pg (27.0-31.0); MEAN CORPUSCULAR HGB CONC 32.1 g/dL (32.0-36.0); MEAN CORPUSCULAR VOLUME 91.2 fL (80.0-94.0); MEAN PLATELET VOLUME 12.2 fL (7.4-11.4); MONOCYTES # (AUTO) 0.4 10^3/uL (0.0-1.0); MONOCYTES % (AUTO) 5.5 %; NEUTROPHILS # (AUTO) 5.5 10^3/uL (1.5-6.6); NEUTROPHILS % (AUTO) 78.2 %; PLT - PLATELET COUNT 174 10^3/uL (130-450); RED BLOOD COUNT 4.89 10^6/uL (4.70-6.10); RED CELL DISTRIBUTION WIDTH 13.7 % (12.0-15.0); WHITE BLOOD COUNT 7.1 x10^3/uL (4.8-10.8)
[2020-09-05 15:47] LABS: ALBUMIN 3.8 g/dL (3.2-5.5); ALBUMIN/GLOBULIN RATIO 2.1 (1.0-2.2); ALKALINE PHOSPHATASE 35 IU/L (42-121); ALT ALANINE AMINOTRANSFERASE 68 IU/L (10-60); AST ASPARTATE AMINOTRANSFERASE 36 IU/L (10-42); BILIRUBIN,TOTAL 0.9 mg/dL (0.2-1.0); BUN - BLOOD UREA NITROGEN 19 mg/dL (6-20); CALCIUM 8.8 mg/dL (8.5-10.3); CARBON DIOXIDE - CO2 27 mmol/L (21-32); CHLORIDE 108 mmol/L (101-111); CREATININE 1.6 mg/dL (0.6-1.2); DIGOXIN 0.9 ng/mL; GLUCOSE 116 mg/dL (70-100); LIPASE 52 U/L (22-51); SODIUM 144 mmol/L (135-145); TOTAL PROTEIN 5.6 g/dL (6.7-8.2)
[2020-09-05 17:01] LABS: MUDS CUTOFF CONCENTRATIONS CUTOFF CONC BELOW:
[2020-09-05 17:08] LABS: AMPHETAMINE SCREEN,URINE NEGATIVE (NEGATIVE); BENZODIAZEPINES SCREEN, URINE POSITIVE (NEGATIVE); COCAINE SCREEN URINE NEGATIVE (NEGATIVE); METHADONE SCREEN, URINE NEGATIVE (NEGATIVE); METHAMPHETAMINES SCREEN, URINE NEGATIVE (NEGATIVE); OPIATE SCREEN, URINE NEGATIVE (NEGATIVE); OXYCODONE SCREEN, URINE NEGATIVE (NEGATIVE); PROPOXYPHENE SCREEN, URINE NEGATIVE (NEGATIVE); TRICYCLIC ANTIDEPRESSANT,URINE NEGATIVE (NEGATIVE)
[2020-09-05] MEDS ORDERED: HEPARIN 25000UNITS/500ML (D5W) 25,000 UNIT/500 ML BAG IV SCH (19:00)
[2020-09-05 19:43] VITALS: BP 138/110
== END 2020-09-05 20:25 | disposition short-term general hospital (02) ==
LOC: EDUNIT# → ED 14:57
DX: I21.4 Non-ST elevation (NSTEMI) myocardial infarction (principal); I42.9 Cardiomyopathy, unspecified
CPT/HCPCS: 36415; 71045; 80053; 80162; 80306; 80320; 83690; 83880; 84484; 85025; 93005; 96374; 99285

== ENCOUNTER 2020-09-05 20:29 | Outpatient (CLI) | payer OTHER | END 2020-09-05 20:30 | disposition short-term general hospital (02) | LOC: EMS 20:29 | PROVIDERS: ATTEND Surgery | DX: I21.4 Non-ST elevation (NSTEMI) myocardial infarction (principal) | CPT/HCPCS: A0425; A0426 ==

== ENCOUNTER 2020-10-21 12:42 | Emergency (ER) | payer OTHER ==
[2020-10-21 12:52] VITALS: BP 129/83
[2020-10-21 13:14] LABS: BASOPHILS % (AUTO) 0.3 %; EOSINOPHILS # (AUTO) 0.1 10^3/uL (0.0-0.7); HGB - HEMOGLOBIN 16.4 g/dL (14.0-18.0); LYMPHOCYTES # (AUTO) 0.8 10^3/uL (1.5-3.5); LYMPHOCYTES % (AUTO) 9.7 %; MEAN CORPUSCULAR HEMOGLOBIN 29.3 pg (27.0-31.0); MEAN CORPUSCULAR HGB CONC 34.4 g/dL (32.0-36.0); MEAN CORPUSCULAR VOLUME 85.2 fL (80.0-94.0); MEAN PLATELET VOLUME 11.2 fL (7.4-11.4); MONOCYTES # (AUTO) 0.3 10^3/uL (0.0-1.0); MONOCYTES % (AUTO) 3.3 %; NEUTROPHILS # (AUTO) 6.8 10^3/uL (1.5-6.6); NEUTROPHILS % (AUTO) 85.3 %; PLT - PLATELET COUNT 178 10^3/uL (130-450); WHITE BLOOD COUNT 7.9 x10^3/uL (4.8-10.8)
[2020-10-21 13:27] LABS: ALBUMIN 4.4 g/dL (3.2-5.5); ALBUMIN/GLOBULIN RATIO 1.7 (1.0-2.2); BILIRUBIN,TOTAL 0.9 mg/dL (0.2-1.0); CALCIUM 9.5 mg/dL (8.5-10.3); CREATININE 1.2 mg/dL (0.6-1.2)
[2020-10-21 13:29] LABS: DIGOXIN 0.4 ng/mL
--- NOTE | 2020-10-21 13:31 | XRAY Report ---
PROCEDURE: Chest 1 View X-Ray INDICATIONS: Chest Pain TECHNIQUE: One view of the chest was acquired. COMPARISON: 09/05/2020. FINDINGS: Surgical changes and devices: None. Lungs and pleura: No pleural effusions or pneumothorax. Lungs are clear. Mediastinum: Mediastinal contours appear normal. Heart size is normal. Bones and chest wall: No suspicious bony lesions. Overlying soft tissues appear unremarkable. IMPRESSION: 1. No acute cardiopulmonary disease. Reviewed by: Master Bhakta MD on 10/21/2020 1:29 PM [facility] Approved by: Master Bhakta MD on 10/21/2020 1:29 PM [facility] Station ID: [id number]
--- NOTE | 2020-10-21 13:40 | ED Physician Documentation ---
History of Present Illness - Stated complaint Stated Complaint: BLURRED VISION - Chief complaint Chief Complaint: Neuro - History obtained from History obtained from: Patient - History of Present Illness Timing: Today Pain level max: 0 Pain level now: 0 - Additonal information Additional information: 30-year-old male presents to the emergency department stating that he had blurred vision in his left eye for a little while earlier this morning. Lasted approximately 15 to 20 minutes. Now resolved. No other symptoms. Has a history of atrial fibrillation, cardiomyopathy of unclear etiology. 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 Currently patient is fully asymptomatic and feels normal. Review of Systems Constitutional: denies: Fever, Chills Throat: denies: Sore throat Cardiac: denies: Chest pain / pressure, Palpitations Respiratory: denies: Cough GI: denies: Vomiting, Diarrhea PD PAST MEDICAL HISTORY - Past Medical History Past Medical History: Yes Cardiovascular: Atrial fibrillation Respiratory: None Neuro: Other Endocrine/Autoimmune: None GI: None : None HEENT: None Psych: None Musculoskeletal: None, Other Derm: Other - Past Surgical History Past Surgical History: No - Present Medications Home Medications: Ambulatory Orders Medication Instructions Recorded Confirmed Apixaban [Eliquis] 1 tab PO BID 10/21/20 10/21/20 Digoxin [Lanoxin] 1 tab PO DAILY 10/21/20 10/21/20 Furosemide [Lasix] 1 tab PO DAILY 10/21/20 10/21/20 Metoprolol Succinate [Toprol Xl] 1 tab PO BID 10/21/20 10/21/20 lisinopriL [Zestril] 1 tab PO DAILY 10/21/20 10/21/20 - Allergies Allergies/Adverse Reactions: Allergies Allergy/AdvReac Type Severity Reaction Status Date / Time No Known Drug Allergies Allergy Verified 10/21/20 12:52 - Social History Does the pt smoke?: No Smoking Status: Never smoker Does the pt drink ETOH?: Yes Does the pt have substance abuse?: No - Immunizations Immunizations are current?: Yes - POLST Patient has POLST: No POLST Status: Full Code PD ED PE NORMAL - Vitals Vital signs reviewed: Yes - General General: Alert and oriented X 3, No acute distress - HEENT HEENT: Atraumatic, PERRL, Moist mucous membranes - Neck Neck: Supple, no meningeal sign - Cardiac Cardiac: RRR - Respiratory Respiratory: No respiratory distress, Clear bilaterally - Abdomen Abdomen: Soft, Non tender, Non distended - Derm Derm: Warm and dry - Extremities Extremities: No edema, No calf tenderness / cord - Neuro Neuro: Alert and oriented X 3 Results - Vitals Vitals: Vital Signs - 24 hr 10/21/20 12:50 Temperature 36.5 C Heart Rate 108 H Respiratory 20 Rate Blood Pressure 129/83 H O2 Saturation 99 Oxygen O2 Source Room air - Labs Labs: Laboratory Tests 10/21/20 10/21/20 10/21/20 13:05 13:05 13:05 WBC 7.9 RBC 5.60 Hgb 16.4 Hct 47.7 MCV 85.2 MCH 29.3 MCHC 34.4 RDW 12.0 Plt Count 178 MPV 11.2 Neut # (Auto) 6.8 H Lymph # (Auto) 0.8 L [place] # (Auto) 0.3 Eos # (Auto) 0.1 Baso # (Auto) 0.0 Absolute Nucleated RBC 0.00 Nucleated RBC % 0.0 Sodium 138 Potassium 4.2 Chloride 102 Carbon Dioxide 25 Anion Gap 11.0 BUN 16 Creatinine 1.2 Estimated GFR (MDRD) 70 L Glucose 109 H Calcium 9.5 Total Bilirubin 0.9 AST 28 ALT 42 Alkaline Phosphatase 55 Troponin I High Sens 4.6 Total Protein 7.0 Albumin 4.4 Globulin 2.6 Albumin/Globulin Ratio 1.7 Lipase 35 Last Dose Date Last Dose Time Digoxin 10/21/20 13:05 WBC RBC Hgb Hct MCV MCH MCHC RDW Plt Count MPV Neut # (Auto) Lymph # (Auto) [place] # (Auto) Eos # (Auto) Baso # (Auto) Absolute Nucleated RBC Nucleated RBC % Sodium Potassium Chloride Carbon Dioxide Anion Gap BUN Creatinine Estimated GFR (MDRD) Glucose Calcium Total Bilirubin AST ALT Alkaline Phosphatase Troponin I High Sens Total Protein Albumin Globulin Albumin/Globulin Ratio Lipase Last Dose Date UNKNOWN Last Dose Time UNKNOWN Digoxin 0.4 - Rads (name of study) Chest x-ray Radiology: Prelim report reviewed, EMP read contemporaneously, See rad report (no acute abnormality.) PD MEDICAL DECISION MAKING - ED course Complexity details: reviewed results, re-evaluated patient, considered differential, d/w patient ED course: 30-year-old male presents to the emergency department with blurred vision today. Resolved after about 15 to 20 minutes. Unclear etiology. No significant lab findings, EKG findings, chest x-ray findings. No neurological deficits. We will have him follow-up with his doctor for further care. Patient counseled regarding signs and symptoms for which I believe and urgent re-evaluation would be necessary. Patient with good understanding of and agreement to plan and is comfortable going home at this time This document was made in part using voice recognition software. While efforts are made to proofread this document, sound alike and grammatical errors may occur. Departure - Departure Disposition: 01 Home, Self Care Clinical Impression: Blurred vision Condition: Good Instructions: ED Blurred Vision Follow-Up: Zuleima Pierson MD [Primary Care Provider] - Within 1 week Comments: The cause of your symptoms is unclear today. Follow-up with your doctor for further care. Your digoxin level is 0.4 today. This is nontoxic. Discharge Date/Time: 10/21/20 13:52
== END 2020-10-21 13:52 | disposition home or self-care (01) ==
LOC: ED 12:42
DX: H53.8 Other visual disturbances (principal); I48.91 Unspecified atrial fibrillation; Z79.01 Long term (current) use of anticoagulants; I42.9 Cardiomyopathy, unspecified
CPT/HCPCS: 36415; 80053; 80162; 83690; 84484; 85025; 93005; 99284

== ENCOUNTER 2021-07-24 09:33 | Emergency (ER) | payer OTHER ==
--- NOTE | 2021-07-24 12:37 | XRAY Report ---
PROCEDURE: Ankle 3 View LT INDICATIONS: ankle pain, swelling TECHNIQUE: 3 views of the ankle were acquired. COMPARISON: None FINDINGS: Bones: No fractures or dislocations. Ankle mortise is normally aligned. No suspicious bony lesions . Incidental note is made of an enthesophyte at the Achilles insertion. Soft tissues: No tibiotalar joint effusion. Achilles tendon appears normal. IMPRESSION: An Achilles insertion spur can be seen. Reviewed by: Bertram Pickett MD on 07/24/2021 11:36 AM [facility] Approved by: Bertram Pickett MD on 07/24/2021 11:36 AM [facility] Station ID: [id number]
--- NOTE | 2021-07-24 12:48 | ED Physician Documentation ---
History of Present Illness - Stated complaint Stated Complaint: L ANKLE PX - Chief complaint Chief Complaint: Ext Problem - History obtained from History obtained from: Patient - History of Present Illness Timing: How many days ago (3) Pain level max: 7 Pain level now: 5 - Additonal information Additional information: Patient is a 31-year-old male who presents to the emergency department left posterior ankle pain. Worse with movement, better with rest. Does not recall any specific injury. No swelling. No redness. Review of Systems Constitutional: denies: Fever, Chills GI: denies: Nausea, Vomiting, Diarrhea Skin: denies: Rash Musculoskeletal: denies: Neck pain Neurologic: denies: Headache PD PAST MEDICAL HISTORY - Past Medical History Past Medical History: Yes Cardiovascular: Atrial fibrillation Respiratory: None Neuro: Other Endocrine/Autoimmune: None GI: None : None HEENT: None Psych: None Musculoskeletal: Gout, Other Derm: Other - Past Surgical History Past Surgical History: No - Present Medications Home Medications: Ambulatory Orders Medication Instructions Recorded Confirmed Apixaban [Eliquis] 1 tab PO BID 10/21/20 07/24/21 Furosemide [Lasix] 1 tab PO DAILY 10/21/20 07/24/21 Metoprolol Succinate [Toprol Xl] 25 tab PO DAILY 10/21/20 07/24/21 Sacubitril/Valsartan [Entresto 24 1 tab ORAL BID 07/24/21 07/24/21 mg-26 mg Tablet] - Allergies Allergies/Adverse Reactions: Allergies Allergy/AdvReac Type Severity Reaction Status Date / Time No Known Drug Allergies Allergy Verified 07/24/21 09:48 - Social History Does the pt smoke?: No Smoking Status: Former smoker Does the pt drink ETOH?: Yes Does the pt have substance abuse?: No - Immunizations Immunizations are current?: Yes - POLST Patient has POLST: No POLST Status: Full Code PD ED PE NORMAL - Vitals Vital signs reviewed: Yes - General General: Alert and oriented X 3, No acute distress - HEENT HEENT: Moist mucous membranes - Extremities Extremities: Other (L ankle - TTP over the achilles insertion. no tenderness along the achilles tendon. achilles intact. NVI. no skin changes or swelling. no ankle tenderness) - Neuro Neuro: Alert and oriented X 3 - Psych Psych: Normal mood, Normal affect Results - Vitals Vitals: Vital Signs - 24 hr 07/24/21 07/24/21 09:48 12:53 Temperature 36.5 C 36.9 C Heart Rate 62 67 Respiratory 18 16 Rate Blood Pressure 109/78 125/88 H O2 Saturation 98 98 Oxygen O2 Source Room air - Rads (name of study) L ankle xray Radiology: Final report received, EMP read contemporaneously, See rad report (An Achilles insertion spur can be seen. ) PD MEDICAL DECISION MAKING - ED course Complexity details: reviewed results, considered differential, d/w patient ED course: Patient with an Achilles tendon insertion spur. He is tender at the site. No evidence of Achilles tendon rupture. Placed in a walking boot. Patient can utilize anti-inflammatories at home along with rest, ice and elevation. We will have him follow-up with orthopedics for further care. Patient counseled regarding signs and symptoms for which I believe and urgent re-evaluation would be necessary. Patient with good understanding of and agreement to plan and is comfortable going home at this time This document was made in part using voice recognition software. While efforts are made to proofread this document, sound alike and grammatical errors may occur. Departure - Departure Disposition: 01 Home, Self Care Clinical Impression: Achilles tendinitis, left leg Condition: Good Instructions: ED Tendinitis Calcific Follow-Up: [facility] [Provider Group] - Within 1 week Comments: Please follow-up with orthopedics for further care. Use the boot to help decrease the inflammation in your Achilles tendon. Avoid any strenuous activity. An Achilles insertion spur can be seen on your xray Discharge Date/Time: 07/24/21 13:05
[2021-07-24 12:53] VITALS: BP 125/88
== END 2021-07-24 13:05 | disposition home or self-care (01) ==
LOC: ED 09:33
DX: M76.62 Achilles tendinitis, left leg (principal); I48.91 Unspecified atrial fibrillation; Z79.01 Long term (current) use of anticoagulants; Z87.891 Personal history of nicotine dependence
CPT/HCPCS: 99283